=== PATIENT | male | born 2000 | race Caucasian/White ===

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

== ENCOUNTER 2019-05-24 20:56 | Emergency (ER) | payer OTHER | END 2019-05-24 23:02 | disposition home or self-care (01) | LOC: ERS 20:56 | DX: H65.91 Unspecified nonsuppurative otitis media, right ear (principal); H10.33 Unspecified acute conjunctivitis, bilateral; F90.9 Attention-deficit hyperactivity disorder, unspecified type | CPT/HCPCS: 99283 ==